=== PATIENT | male | born 2000 | race Caucasian/White ===

== ENCOUNTER 2025-06-22 22:16 | Emergency (ER) | payer SELFPAY | END 2025-06-22 23:06 | disposition home or self-care (01) | LOC: MW.ED 22:16 | DX: J39.9 Disease of upper respiratory tract, unspecified (principal) | CPT/HCPCS: 87651; 99282; 99283 ==

== ENCOUNTER 2025-07-28 21:42 | Emergency (ER) | payer BC ==
[2025-07-28 22:15] LABS: APPEARANCE,URINE CLEAR; GLUCOSE,URINE NEGATIVE (NEGATIVE); OCCULT BLOOD,URINE NEGATIVE (NEGATIVE)
[2025-07-28 23:44] LABS: C. TRACHOMATIS BY PCR NOT DETECTED; N. GONORRHOEAE BY PCR NOT DETECTED
== END 2025-07-28 22:48 | disposition home or self-care (01) ==
LOC: MW.ED 21:42
DX: N34.2 Other urethritis (principal); N48.1 Balanitis; R36.9 Urethral discharge, unspecified; Z20.2 Contact with and (suspected) exposure to infections with a predominantly sexual mode of transmission; Z79.899 Other long term (current) drug therapy
CPT/HCPCS: 81003; 87491; 87591; 96372; 99283; A9270; J0696; J2003